=== PATIENT | male | born 1995 | race Two or more races ===

== ENCOUNTER 2016-06-29 08:06 | Emergency (ER) | payer SELFPAY ==
[~2016-06-29 08:06] MED LIST: BACTRIM DS TABL1 TAB PO
== END 2016-06-29 09:52 ==
LOC: EDMED 08:06
DX: R51 Headache (principal); Z88.8 Allergy status to other drugs, medicaments and biological substances
CPT/HCPCS: J0780; J1200; J1885